=== PATIENT | male | born 1965 | race Caucasian/White ===

== ENCOUNTER 2022-09-06 07:43 | Day surgery (SDC) | payer MEDICAID, SELFPAY ==
[2022-09-06] VITALS (13 sets, daily range): BP systolic 143–191; BP diastolic 97–116; PULSE 61–80; RESP 18–20; O2SAT 96–99; BMI 22.1
--- NOTE | 2022-09-06 07:09 | IR_ITS ---
APPROVED REPORT Patient Location: Outpatient PROCEDURES Left heart catheterization Left ventriculogram Selective coronary angiogram Selective engagement the left internal mammary artery to the LAD Selective engagement of the saphenous vein graft to the distal dominant right coronary Drug-eluting stent deployment to the proximal circumflex artery Drug-eluting stent deployment to the first obtuse marginal artery INDICATION Coronary artery disease, Accelerated angina pectoris, History of coronary bypass surgery Informed consent was obtained prior to the procedure. COMPLICATIONS None Estimated Blood Loss: Less than 10 mls TECHNIQUE One percent lidocaine used to anesthetize the right groin. The right femoral artery was accessed via the Seldinger technique and a 5 [place] sheath was placed in the right femoral artery. A JL 4, JR4 catheter were used to perform left heart catheterization, left ventriculogram selective coronary angiography as well as selective engagement of the 2 vein grafts and the left internal mammary artery. At the end the diagnostic angiogram therapeutic heparin was administered giving a therapeutic ACT and the 5 [place] sheath was exchanged for a 6 [place] sheath. An EBU 4 guide catheter was placed in the left main artery followed by Choice PT extra-support wire being placed down the circumflex artery. A guide liner was advanced for additional support. Predilatation was made using 2 mm balloon after primary stenting could not be performed. A 2.5 x 38 mm [place] frontier stent was deployed at 20 umm reducing the stenosis. A choice floppy wire was then placed into the distal obtuse marginal artery where additional predilatation was made. Eventually a 2.25 x 22 mm [place] frontier stent was deployed at 20 umm reducing the critical stenosis to 0%. The balloon was brought back and deployed at 24 umm to post dilate. A 3 mm x 26 mm [place] frontier stent was placed in the proximal circumflex artery extending into the first obtuse marginal artery at 20 umm. The balloon was advanced and deployed at 15 umm in the proximal to midportion of the 2.5 mm stent. After achieving excellent angiographic results the apparatus was removed the groin is reprepped closure change sheath was removed and hemostasis was achieved using Perclose device patient was transferred to the postop putting in stable condition ANGIOGRAPHIC RESULTS The left main artery Has proximal eccentric 20% stenosis The left anterior descending artery Has proximal 90% stenosis and then subtotally occluded at mid vessel where competitive flow from the left internal mammary artery graft is identified The circumflex artery Is co-dominant vessel and gives rise to a moderate size ramus intermedius which has a proximal 90% stenosis followed by a tubular 50% stenosis. The circumflex artery itself gives rise to a solitary obtuse marginal artery with the obtuse marginal artery having a long concentric 90% stenosis The right coronary artery Is co-dominant yet still large vessel with a long proximal to mid vessel 70% stenosis. Competitive flow is identified distally The [place] ventriculogram reveals Not performed The left ventricular end-diastolic pressure Not measured CODY to LAD is widely patent. A large thoracic branch was identified in the proximal CODY however there appears to be normal opacification throughout the entire CODY graft Saphenous vein graft to right coronary arteries posterior descending artery is widely patent Saphenous vein graft to circumflex artery appears ostially occluded IMPRESSION Adequate two-vessel revascularization as described above with widely patent CODY to LAD and a widely patent saphenous vein graft to posterior descending artery Severe stenosis in a [place] circumflex artery which extends into
[2022-09-06 08:12] LABS: Basophils # 0.1 K/mm3 (0-0.2); Basophils % 0.8 % (0.1-2.0); Eosinophils # 0.2 K/mm3 (0.0-0.4); Eosinophils % 2.9 % (0.1-12.0); Hematocrit 47.6 % (42.0-52.0); Hemoglobin 14.8 g/dL (14.1-18.0); Lymphocytes # 2.9 K/mm3 (0.7-4.5); Lymphocytes % 36.9 % (10-50); Mean Corpuscular Hemoglobin 29.9 pg (27.0-31.2); Mean Corpuscular Volume 96.5 fl (80-94); Mean Platelet Volume 7.6 fl (7.4-10.4); Monocytes # 0.6 K/mm3 (0.1-1.0); Monocytes % 7.9 % (1.7-9.3); Neutrophils # 4.1 K/mm3 (1.8-7.8); Neutrophils % 51.5 % (37.0-80.0); Platelet Count 283 K/mm3 (142-424); Red Blood Count 4.94 M/mm3 (4.60-6.20); Red Cell Distribution Width 13.6 % (11.5-17.5)
[2022-09-06 08:20] LABS: Anion Gap 16.5 mEq/L (5-15); Blood Urea Nitrogen 17 mg/dl (9-20); Carbon Dioxide 22 mmol/L (22.0-30.0); Chloride 105 mmol/L (98-107); Creatinine Clearance Estimated 82 mL/min (50-200); Estimated Glomerular Filt Rate 88 ml/min (>60); GFR (African American) 106 ML/MIN (>60); Glucose 88 mg/dl (74-100); Potassium 4.5 mmoL/L (3.5-5.1); Sodium 139 mmol/L (136-145)
[2022-09-06 10:59] LABS: CATHL Activated Clotting Time 386 SEC (74-125)
--- NOTE | 2022-09-06 14:03 | P.CONPHA_ITS ---
PHA Admission Nurse Coordinator Discharge Med Tagman: Heri Jenkins has received discharge medication counseling on the following medications: ASPIRIN 81MG LIPITOR 40MG PLAVIX 75MG METOPROLOL SUCCINATE 50MG LISINOPRIL 5MG PATIENT ALREADY TAKING ALL NECESSARY MEDICATIONS POST STENT. PATIENT VERBALIZED UNDERSTANDING AND HAD NO QUESTIONS AT THIS TIME. -INGRID FLOR, PHARMD
== END 2022-09-06 14:00 | disposition home or self-care (01) ==
PROVIDERS: Visit Provider Internal Medicine
DX: I25.119 Atherosclerotic heart disease of native coronary artery with unspecified angina pectoris (principal); I10 Essential (primary) hypertension; Z95.1 Presence of aortocoronary bypass graft; F17.210 Nicotine dependence, cigarettes, uncomplicated
CPT/HCPCS: 80048; 85025; 85347; 92928; 92929; 93454; 93455; 99152; 99153; C1725; C1760; C1769; C1876; C1894; C9600; C9601; J1644; Q9967

== ENCOUNTER 2023-05-07 11:36 | Observation (INO) | payer MEDICAID, SELFPAY ==
[2023-05-07] VITALS (21 sets, daily range): BP systolic 105–162; BP diastolic 72–94; PULSE 50–89; RESP 16–18; TEMP 36.4–36.7; O2SAT 96–100; BMI 24.8
--- NOTE | 2023-05-07 07:01 | IR_ITS ---
APPROVED REPORT Patient Location: Outpatient PROCEDURES Left heart catheterization Left ventriculogram Selective coronary angiogram Selective engagement left internal mammary artery to the LAD Selective engagement of the saphenous vein graft to the right coronary Intravascular lithotripsy to the distal left main artery Intravascular lithotripsy to the proximal circumflex artery Drug-eluting stent deployment to the circumflex artery Drug-eluting stent deployment to the left main artery INDICATION Coronary artery disease, History of coronary artery bypass surgery, Calcific left main artery and calcific circumflex artery Informed consent was obtained prior to the procedure. COMPLICATIONS None Estimated Blood Loss: Less than 10 ml TECHNIQUE One percent lidocaine used to anesthetize the right groin. The right femoral artery was accessed via the Seldinger technique and a 5 [place] sheath was placed in the right femoral artery. A JL 4, JR4 catheter were used to perform left heart catheterization, left ventriculogram selective coronary angiography as well as selective engagement of the 1 vein graft and the left internal mammary artery. At the end of the diagnostic angiogram therapeutic heparin was administered giving a therapeutic ACT and the 5 [place] sheath was exchanged for a 6 [place] sheath. A JL 4 guide catheter was placed in the left main artery followed by Choice PT to support wire placed on the circumflex artery. The 4 mm x 12 mm shockwave lithotripsy balloon was deployed at 4 umm for total of 120 pulsations in the circumflex artery and left main artery. Following this a 3.5 x 18 mm [place] frontier stent was placed in the proximal circumflex artery at 18 umm reducing the stenosis to 0%. An additional 4 mm x 26 mm [place] frontier stent was placed in the ostial left main artery extending into the proximal circumflex artery and deployed at 20 umm. Excellent angiographic results were obtained with CAROLE-3 flow being present before and after the procedure. At the end of the procedure the apparatus was removed the groin is reprepped closure change sheath was removed good hemostasis was achieved using Perclose device patient was transferred to the postop putting in stable condition ANGIOGRAPHIC RESULTS The left main artery Has an ostial calcified 70 to 80% stenosis with a distal 50% stenosis The left anterior descending artery Is proximally patent gives off a single septal charging manipulator and then occluded The circumflex artery Is a large dominant vessel giving rise to a large ramus intermedius which has proximal 10 to 20% stenoses. The circumflex artery itself is patent with a proximal 90% stenosis immediately proximal to a patent stent. The right coronary artery Is a codominant vessel and has proximal and mid vessel 70% stenosis with a focal concentric greater than 90% stenosis followed by a long concentric 70% stenosis which extends into the posterior descending artery and posterior lateral branch. Competitive flow is identified in the posterior descending artery CODY is widely patent mid LAD Saphenous vein graft to the posterior descending artery is patent. The distal portion of the saphenous vein graft there is a concentric tubular 60 to 70% stenosis however the stenotic area appears smooth and may be an anatomical twist. The size of the distal saphenous vein graft is equivalent in size to the posterior descending artery IMPRESSION Severe ostial proximal left main disease which extended into a large circumflex artery and ramus intermedius Successful intravascular lithotripsy to the left main artery and circumflex artery Successful drug-eluting stenting to the left main artery as described above Successful drug-eluting stenting to the proximal circumflex artery as described above Patent CODY to LAD Patent saphenous vein graft to posterior descending artery with disease described as above PLAN 1. Patient will be admitted overnight due to the complex nature of the procedure and monitored for arrhythmia. 2. IV fluids to reduce contrast nephropathy 3. Dual antiplatelet therapy 4. Avoidance of tobacco products 5. LDL less than 55 to be achieved with high intensity statin 6. Cardiac rehabilitation 7. Aggressive risk factor modification Electronically signed by : Ab Chapman MD 05/08/2023 15:16:40
--- NOTE | 2023-05-07 07:56 | CA_ITS ---
APPROVED REPORT EXAM: Comprehensive 2D, Doppler, and color-flow Echocardiogram Wall Covering Contractor: Alida Bai RVT Ht: 5 ft 6 in Wt: 154lbs BSA: 1.79 BP: 133/81 mmHg Indications: CP,CAD,CABG,ABN EKG,SMOKER,SOA,HTN,HLD 2D Dimensions LA Volume 27.00 mL LA Volume Index 15.08 mL/m2 (M/F) 16-34 M-Mode Dimensions RVDd 2.01 cm (0.9-2.6) LA Diam 2.77 cm (1.9-4.0) LVDd 4.45 cm (3.5-5.7) LVDs 3.28 cm (3.5-5.7) IVSd 1.41 cm (0.6-1.1) PWd 0.74 cm (0.6-1.1) EF (Teich) 51.70% FS 26.30% EDV (Teich) 90.10 mL TAPSE 0.91 (<1.7) ESV (Teich) 43.50 mL LV Diastology E Decel Time 187 (160-240 msec) E/A Ratio 1.4 Aortic Valve ELISHA Index 2.01 cm2/m2 AoV Peak Rob. 104.0 (50-130 cm/s) AO Peak GR. 4.40 mmHg AO Mean GR. 2.30 (<5 mmHg) AO VTI 18.6 (18-25 cm) ELISHA (VTI) 3.68 (2.5-4.5 cm2) Mitral Valve MV E Max Rob. 71.0 (40-130 cm/s) MV A Velocity 51.0 (40-130 cm/s) E/A Ratio 1.39 MV PHT 55.0 ms Pulmonary Valve PV Peak Velocity 55.0 (50-150 cm/s) Tricuspid Valve TR P. Velocity 190.00 cm/s RAP Estimate 10.00 mmHg RVSP 24.40 mmHg Left Ventricle The left ventricle is normal size. The left ventricular systolic function is normal. The left ventricular ejection fraction is within the normal range. There is increased LV wall thickness. The septum is asynchronous. The left ventricular diastolic function is normal. LVEF is 55%. Right Ventricle The right ventricle is moderately dilated. Right ventricle is mildly hypokinetic. Atria The left atrium size is normal. The right atrium size is normal. There is no Doppler evidence of interatrial shunt. Aortic Valve The aortic valve opens well. There is no aortic valvular stenosis. Trace aortic regurgitation. Mitral Valve The mitral valve is normal in structure. No evidence of mitral valve stenosis. Trace mitral regurgitation. Tricuspid Valve The tricuspid valve leaflets are thin and pliable. Trace tricuspid regurgitation. There is insufficient TR jet to estimate RVSP. Pulmonic Valve The pulmonary valve is normal in structure. Trace pulmonic regurgitation. Great Vessels The aortic root is mildly dilated, measuring 4.2 cm in diameter. The ascending aorta is borderline dilated, measuring 3.7 cm in diameter. IVC is normal in size and collapses >50% with inspiration. Pericardium There is no pericardial effusion. Other Information Study Quality: Fair Conclusion Normal LV systolic function. Moderate RV dilation with mild reduction in RV function. No significant valvular stenosis or regurgitation. Mildly dilated aortic root (4.2 cm) and borderline dilated ascending aorta (3.7 cm). Electronically signed by : Halie Castillo MD 05/09/2023 21:19:13
[2023-05-07 08:53] LABS: Basophils # 0.1 K/mm3 (0-0.2); Basophils % 0.8 % (0.1-2.0); Eosinophils # 0.3 K/mm3 (0.0-0.4); Eosinophils % 3.3 % (0.1-12.0); Hematocrit 45.2 % (42.0-52.0); Hemoglobin 14.3 g/dL (14.1-18.0); Lymphocytes # 2.9 K/mm3 (0.7-4.5); Mean Corpuscular HGB Conc 31.7 g/dL (31.8-35.4); Mean Corpuscular Hemoglobin 30.9 pg (27.0-31.2); Mean Corpuscular Volume 97.4 fl (80-94); Mean Platelet Volume 7.8 fl (7.4-10.4); Monocytes # 0.8 K/mm3 (0.1-1.0); Monocytes % 8.4 % (1.7-9.3); Neutrophils # 4.9 K/mm3 (1.8-7.8); Neutrophils % 55.4 % (37.0-80.0); Platelet Count 294 K/mm3 (142-424); Red Blood Count 4.64 M/mm3 (4.60-6.20); Red Cell Distribution Width 14.6 % (11.5-17.5); White Blood Count 8.9 K/mm3 (4.8-10.8)
[2023-05-07 08:55] LABS: Anion Gap 14.5 mEq/L (5-15); Blood Urea Nitrogen 25 mg/dl (9-20); Calcium 9.5 mg/dl (8.4-10.2); Carbon Dioxide 22 mmol/L (22.0-30.0); Chloride 109 mmol/L (98-107); Creatinine Clearance Estimated 74 mL/min (50-200); Estimated Glomerular Filt Rate 69 ml/min (>60); GFR (African American) 84 ML/MIN (>60); Glucose 95 mg/dl (74-100); Potassium 4.5 mmoL/L (3.5-5.1); Sodium 141 mmol/L (136-145)
[2023-05-07] MEDS: HEPARIN 1,000 UNITS/500ML NS (CATH LAB) 3000 UNIT IV (10:30)
[2023-05-07] MEDS: diphenhydrAMINE 50MG/ML VIAL 50 MG IV (10:30)
[2023-05-07] MEDS: LIDOCAINE 1% 10ML MDV 20 ML IJ (10:34)
[2023-05-07] MEDS: 0.9 % SODIUM CHLORIDE 500 ML 25 ML IV (10:34)
[2023-05-07] MEDS: MIDAZOLAM HCL 1MG/1ML 5ML VIAL 1 MG IV (10:46)
[2023-05-07] MEDS: FENTANYL 100MCG/2ML VIAL 50 MCG IV (10:47)
[2023-05-07] MEDS: PROPOFOL 10MG/ML 20ML VIAL 30 MG IV (11:04)
[2023-05-07] MEDS: HEPARIN 1,000 UNITS/ML 10ML VIAL (CATH LAB) 10000 UNIT IV (11:07)
[2023-05-07] MEDS: PROMETHAZINE HCL 25MG/ML 1ML VIAL 25 MG IV (11:34)
[2023-05-07] MEDS: CLOPIDOGREL 75MG TAB 75 MG PO (11:46)
[2023-05-07] MEDS: ASPIRIN EC 81MG TABLET 81 MG PO (11:46)
--- NOTE | 2023-05-07 12:09 | PC.NURSE ---
arrived by shellier from cath lab radiological technologist
--- NOTE | 2023-05-07 12:39 | HMH.PHAINT1 ---
Pharmacy Intervention Comments: home medication list verified using list from outpatient pharmacy
[2023-05-07] MEDS: ACETAMINOPHEN 325MG TAB 650 MG PO (15:22)
--- NOTE | 2023-05-07 15:38 | EXP.HP ---
History of Present Illness *Admission Date: 05/07/23 *Reason for visit:: Cardiac cath *History of present illness: Patient is a 58-year-old male with past medical history of CAD status post CABG, hypertension hyperlipidemia who presents to the hospital for cardiac cath. Patient had cardiac cath with stenting performed, patient was recommended by cardiology for observation in the hospital. Otherwise patient denies chest pain shortness of breath nausea vomiting diarrhea constipation dysuria fever chills at time of my evaluation [facility] Disclaimer: The information contained in this section may have been updated after the patient was seen, as this information can be updated by other users. Medical History Abnormal electrocardiogram [ECG] [EKG] Atypical angina Atypical chest pain Chest pain Coronary artery disease Hyperlipidemia Hypertension Surgical History H/O: vasectomy Hx of CABG S/P CABG x 3 Social History Smoking Status: Current every day smoker tobacco type: cigarettes packs per day: 1 alcohol intake: current substance use type: former substance user and marijuana current occupational status: unemployed Travel in the last 8 weeks: Inside the [place] Review of Systems Review of Systems Review of systems (narrative): as per [facility] Meds Home Medications and Allergies Home Medications Medication Instructions Recorded Confirmed Type aspirin 81 mg tablet,delayed 81 mg PO DAILY Heart Disease 08/21/22 05/07/23 History release bupropion HCl 100 mg tablet,12 hr 100 mg PO DAILY 03/21/23 05/07/23 History sustained-release buspirone 10 mg tablet 10 mg PO BID 03/21/23 05/07/23 History hydroxyzine HCl 50 mg tablet 50 mg PO HSP PRN Anxiety 03/21/23 05/07/23 History lisinopril 20 mg tablet 20 mg PO BID 03/21/23 05/07/23 History metoprolol succinate 25 mg 25 mg PO DAILY #30 tabs 03/21/23 05/07/23 Rx tablet,extended release 24 hr (Toprol XL) ranolazine 500 mg tablet,extended 500 mg PO BID #60 tabs 03/21/23 05/07/23 Rx release,12 hr sertraline 50 mg tablet 50 mg PO DAILY 03/21/23 05/07/23 History atorvastatin 80 mg tablet 80 mg PO HS 05/07/23 05/07/23 History clopidogrel 75 mg tablet 75 mg PO DAILY 05/07/23 05/07/23 History isosorbide mononitrate 60 mg 60 mg PO DAILY 05/07/23 05/07/23 History tablet,extended release 24 hr New Prescriptions to Start Prescriptions: Allergies Allergy/AdvReac Type Severity Reaction Status Date / Time No Known Allergies Allergy Verified 04/26/23 14:27 Exam Data for Last 24 hours Vital signs and Labs for Last 24 Hours: Temp Pulse Resp BP Pulse Ox O2 Del Method 97.8 F 70 17 118/75 100 Room Air 05/07/23 13:45 05/07/23 14:45 05/07/23 14:45 05/07/23 14:45 05/07/23 14:45 05/07/23 14:50 Laboratory Results - last 24 hr 05/07/23 08:35: WBC 8.9, RBC 4.64, Hgb 14.3, Hct 45.2, MCV 97.4 H, MCH 30.9, MCHC 31.7 L, RDW 14.6, Plt Count 294, MPV 7.8, Neut % (Auto) 55.4, Lymph % (Auto) 32.0, [place] % (Auto) 8.4, Eos % (Auto) 3.3, Baso % (Auto) 0.8, Neut # (Auto) 4.9, Lymph # (Auto) 2.9, [place] # (Auto) 0.8, Eos # (Auto) 0.3, Baso # (Auto) 0.1, Sodium 141, Potassium 4.5, Chloride 109 H, Carbon Dioxide 22, Anion Gap 14.5, BUN 25 H, Creatinine 1.10, Estimated Creat Clear 74, Estimated GFR 69, Est GFR ( Amer) 84, Glucose 95, Calcium 9.5 I & O for Last 24 hours: Intake & Output 05/04/23 05/05/23 05/06/23 05/07/23 23:59 23:59 23:59 23:59 Output Total 0 / 0 Balance 0 / 0 Weight 69.853 kg Constitutional Constitutional: no acute distress *Routine HEENT Exam Head: Present normocephalic Eye: Present EOMI and PERRL ENT: Present mucous membranes moist *Routine Neck Exam Neck: Present supple; Absent lymphadenopathy *Routine Respiratory Exam Respiratory: Present CTA bilaterally *Routine Cardiovascular Exam Cardiovascular: Present RRR *Routine Abdominal Exam Abdominal: Present soft and normoactive bowel sounds; Absent tenderness *Routine Rectal Exam Rectal:: deferred *Routine Genitalia Exam Genitalia:: deferred *Routine Extremities Exam Extremities: Absent cyanosis, clubbing or edema *Routine Skin Exam Skin: Present warm; Absent rash *Routine Neurological Exam Neurological: Present alert and oriented X3 Assessment and Plan *Assessment and plan (1) Dyspnea: Status: Acute Category: Medical Code(s): R06.00 - Dyspnea, unspecified (2) Hyperlipidemia: Status: Acute Qualifiers: Hyperlipidemia type: mixed hyperlipidemia Qualified Code(s): E78.2 - Mixed hyperlipidemia Category: Medical Code(s): E78.5 - Hyperlipidemia, unspecified (3) Hx of CABG: Status: Acute Category: Surgical Code(s): Z95.1 - Presence of aortocoronary bypass graft (4) Coronary artery disease: Status: Acute Qualifiers: Coronary Disease-Associated Artery/Lesion type: bypass graft [place] vs. transplanted heart: [place] heart Associated angina: with other forms of angina Qualified Code(s): I25.708 - Atherosclerosis of coronary artery bypass graft(s), unspecified, with other forms of angina pectoris Category: Medical Code(s): I25.10 - Atherosclerotic heart disease of [place] coronary artery without angina pectoris (5) Chest pain: Status: Acute Qualifiers: Chest pain type: unspecified Qualified Code(s): R07.9 - Chest pain, unspecified Category: Medical Code(s): R07.9 - Chest pain, unspecified Plan Patient is a 58-year-old male with past medical history of CAD status post CABG, hypertension hyperlipidemia who presents to the hospital for cardiac cath. Patient had cardiac cath with stenting performed, patient was recommended by cardiology for observation in the hospital. Otherwise patient denies chest pain shortness of breath nausea vomiting diarrhea constipation dysuria fever chills at time of my evaluation Assessment and plan CAD CABG Hypertension Hyperlipidemia Status postcardiac cath, coronary stenting Patient is a started on aspirin, Plavix resume home statin, ranolazine, DVT PPx - lovenox
[2023-05-07] MEDS: SERTRALINE 50MG TABLET 50 MG PO (16:51)
[2023-05-07] MEDS: METOPROLOL SUCCINATE XL 25MG TABLET 25 MG PO (16:51)
[2023-05-07] MEDS: IOPAMIDOL-370 (76%);100ML BOTTLE 150 ML IV (17:18)
[2023-05-07 17:32] LABS: CATHL Activated Clotting Time > 400 SEC (74-125)
--- NOTE | 2023-05-07 18:41 | PC.NURSE ---
A&OX4. TOLERATING RA WELL. HAS C/O SORENESS TO R GROIN, TX PER MAY, EFFECTIVENESS NOTED. NO OTHER NEEDS OR C/O. SITE TO R GROIN CDI. PT HAS BEEN UP INDEPENDENTLY TO BATHROOM, TOLERATING DIET WELL. NSR ON TELE, VSS.
[2023-05-07] MEDS: LISINOPRIL 20MG TABLET 20 MG PO (21:06)
[2023-05-07] MEDS: RANOLAZINE 500MG ER TABLET 500 MG PO (21:06)
[2023-05-07] MEDS: ATORVASTATIN 40MG TABLET 80 MG PO (21:06)
[2023-05-08] VITALS: BP 106/66; PULSE 59; PULSE 66; RESP 18; TEMP 36.7; O2SAT 96
[2023-05-08 04:00] VITALS: BP 101/67; PULSE 52; PULSE 60; RESP 18; TEMP 37.2; O2SAT 96; BMI 24.3
[2023-05-08 06:25] LABS: Blood Urea Nitrogen 20 mg/dl (9-20); Calcium 8.9 mg/dl (8.4-10.2); Carbon Dioxide 24 mmol/L (22.0-30.0); Chloride 110 mmol/L (98-107); Creatinine Clearance Estimated 81 mL/min (50-200); Estimated Glomerular Filt Rate 77 ml/min (>60); GFR (African American) 94 ML/MIN (>60); Glucose 120 mg/dl (74-100); Sodium 138 mmol/L (136-145)
--- NOTE | 2023-05-08 06:26 | PC.NURSE ---
right groin site without hematoma. scant spot of dried blood. pt reported chest soreness.
[2023-05-08 06:34] LABS: Basophils % 0.6 % (0.1-2.0); Eosinophils # 0.2 K/mm3 (0.0-0.4); Eosinophils % 3.1 % (0.1-12.0); Hematocrit 42.3 % (42.0-52.0); Hemoglobin 13.6 g/dL (14.1-18.0); Lymphocytes # 2.5 K/mm3 (0.7-4.5); Lymphocytes % 31.2 % (10-50); Mean Corpuscular HGB Conc 32.1 g/dL (31.8-35.4); Mean Corpuscular Hemoglobin 31.1 pg (27.0-31.2); Mean Corpuscular Volume 96.9 fl (80-94); Monocytes # 0.7 K/mm3 (0.1-1.0); Monocytes % 8.3 % (1.7-9.3); Neutrophils # 4.5 K/mm3 (1.8-7.8); Neutrophils % 56.9 % (37.0-80.0); Platelet Count 265 K/mm3 (142-424); Red Blood Count 4.36 M/mm3 (4.60-6.20); Red Cell Distribution Width 14.7 % (11.5-17.5); White Blood Count 7.9 K/mm3 (4.8-10.8)
[2023-05-08 08:00] VITALS: BP 122/80; PULSE 60; PULSE 72; RESP 18; TEMP 37; O2SAT 100; O2SAT 99
[2023-05-08 09:25] LABS: Alanine Aminotransferase 19 U/L (12-78); Albumin Level 3.9 g/dl (3.5-5.0); Alkaline Phosphatase 95 U/L (38-126); Aspartate Amino Transferase 27 U/L (17-59); Bilirubin,Direct 0.2 mg/dl (0.0-0.4); Bilirubin,Indirect 0.2 mg/dL (0.0-0.9); Bilirubin,Total 0.4 mg/dl (0.2-1.3); Bilirubin,Unconjugated 0.2 mg/dL (0.0-1.1); Chol/HDL Ratio 2.3 (1-3.5); Cholesterol 122 mg/dl (140-200); HDL Cholesterol 54 mg/dl (40-60); Total Protein,Serum 6.1 g/dl (6.3-8.2); Triglycerides 81 mg/dl (30-150); VLDL Cholesterol 16 mg/dL (0-40)
[2023-05-08 09:36] LABS: Direct LDL Cholesterol 47.43 mg/dL (100-129)
[2023-05-08] MEDS: ASPIRIN EC 81MG TABLET 81 MG PO (09:36)
[2023-05-08] MEDS: BUSPIRONE HCL 10 MG TABLET PO (09:37)
[2023-05-08] MEDS: buPROPion HCL 100 MG TABLET PO (09:37)
[2023-05-08] MEDS: RANOLAZINE 500MG ER TABLET 500 MG PO (09:39)
[2023-05-08] MEDS: ENOXAPARIN 40MG/0.4ML SYRINGE 40 MG SQ (09:39)
[2023-05-08] MEDS: METOPROLOL SUCCINATE XL 25MG TABLET 25 MG PO (09:39)
[2023-05-08] MEDS: LISINOPRIL 20MG TABLET 20 MG PO (09:39)
[2023-05-08] MEDS: CLOPIDOGREL 75MG TAB 75 MG PO (09:39)
[2023-05-08] MEDS: SERTRALINE 50MG TABLET 50 MG PO (09:39)
[2023-05-08] MEDS: ACETAMINOPHEN 325MG TAB 650 MG PO (10:12)
--- NOTE | 2023-05-08 10:15 | P.DS_ITS ---
General Admission date:: 05/07/23 Discharge date: 05/08/23 HPI HPI HPI: Patient is a 58-year-old male with past medical history of CAD status post CABG, hypertension hyperlipidemia who presents to the hospital for cardiac cath. Patient had cardiac cath with stenting performed, patient was recommended by cardiology for observation in the hospital. Otherwise patient denies chest pain shortness of breath nausea vomiting diarrhea constipation dysuria fever chills at time of my evaluation Hospital Course Hospital Course Hospital Course: Patient is a 58-year-old male with past medical history of CAD status post CABG, hypertension hyperlipidemia who presents to the hospital for cardiac cath. Patient had cardiac cath with stenting performed, patient was recommended by cardiology for observation in the hospital. Otherwise patient denies chest pain shortness of breath nausea vomiting diarrhea constipation dysuria fever chills at time of my evaluation. Did well during observation. Stable to discharge home. Follow-up with cardiology as an outpatient. Problems addressed as follows: CAD CABG Hypertension Hyperlipidemia - The patient underwent left cardiac catheterization with lithotripsy and stenting to the left main artery. He tolerated the procedure well. Initiated on dual antiplatelet therapy with aspirin and Plavix. Blood pressure well- controlled. Continue statin for his cholesterol, controlled with an LDL of 47. Right groin site has some minor bruising but no significant bleeding or large hematoma. No pain on palpation. Echo was obtained showing normal EF. Has dilated ascending aorta of approximately 4 cm and will need CTA of the chest with monitoring. Plan for follow-up with cardiology in the next 1 to 2 weeks. Stable to discharge home. -Continue meds per med rec. -Hemoglobin stable at 13.6. Kidney function normal with creatinine of 1.0. Exam Data for Last 24 hours Vital signs and Labs for Last 24 Hours: Temp Pulse Resp BP Pulse Ox O2 Del Method 98.6 F 72 18 122/80 100 Room Air 05/08/23 08:00 05/08/23 08:00 05/08/23 08:00 05/08/23 08:00 05/08/23 08:00 05/08/23 09:00 Laboratory Results - last 24 hr 05/07/23 12:08: Activated Clotting Time > 400 H* 05/08/23 05:52: WBC 7.9, RBC 4.36 L, Hgb 13.6 L, Hct 42.3, MCV 96.9 H, MCH 31.1, MCHC 32.1, RDW 14.7, Plt Count 265, MPV 8.0, Neut % (Auto) 56.9, Lymph % (Auto) 31.2, [place] % (Auto) 8.3, Eos % (Auto) 3.1, Baso % (Auto) 0.6, Neut # (Auto) 4.5, Lymph # (Auto) 2.5, [place] # (Auto) 0.7, Eos # (Auto) 0.2, Baso # (Auto) 0.0, Sodium 138, Potassium 5.0, Chloride 110 H, Carbon Dioxide 24, Anion Gap 9.0, BUN 20, Creatinine 1.00, Estimated Creat Clear 81, Estimated GFR 77, Est GFR ( Amer) 94, Glucose 120 H D, Calcium 8.9, Total Bilirubin 0.4, Direct Bilirubin 0.2, Conjugated Bilirubin 0.0, Indirect Bilirubin 0.2, Unconjugated Bilirubin 0.2, AST 27, ALT 19, Alkaline Phosphatase 95, Total Protein 6.1 L, Albumin 3.9, Triglycerides 81, Cholesterol 122 L, LDL Cholesterol Direct 47.43 L , VLDL Cholesterol 16, HDL Cholesterol 54, Cholesterol/HDL Ratio 2.3 I & O for Last 24 hours: Intake & Output 05/05/23 05/06/23 05/07/23 05/08/23 23:59 23:59 23:59 23:59 Intake Total 360 / 360 525 / 525 Output Total 0 / 0 0 / 0 Balance 360 / 360 525 / 525 Weight 69.853 kg 68.606 kg Results Data Completed and Pending Labs on day of discharge: Labs from last 24 hours 05/08/23 05/07/23 05:52 12:08 WBC 7.9 RBC 4.36 L Hgb 13.6 L Hct 42.3 MCV 96.9 H MCH 31.1 MCHC 32.1 RDW 14.7 Plt Count 265 MPV 8.0 Neut % (Auto) 56.9 Lymph % (Auto) 31.2 [place] % (Auto) 8.3 Eos % (Auto) 3.1 Baso % (Auto) 0.6 Neut # (Auto) 4.5 Lymph # (Auto) 2.5 [place] # (Auto) 0.7 Eos # (Auto) 0.2 Baso # (Auto) 0.0 Activated Clotting Time > 400 H* Sodium 138 Potassium 5.0 Chloride 110 H Carbon Dioxide 24 Anion Gap 9.0 BUN 20 Creatinine 1.00 Estimated Creat Clear 81 Estimated GFR 77 Est GFR ( Amer) 94 Glucose 120 H D Calcium 8.9 Total Bilirubin 0.4 Direct Bilirubin 0.2 Conjugated Bilirubin 0.0 Indirect Bilirubin 0.2 Unconjugated Bilirubin 0.2 AST 27 ALT 19 Alkaline Phosphatase 95 Total Protein 6.1 L Albumin 3.9 Triglycerides 81 Cholesterol 122 L LDL Cholesterol Direct 47.43 L VLDL Cholesterol 16 HDL Cholesterol 54 Cholesterol/HDL Ratio 2.3 DS: Diagnosis Discharge Diagnosis (1) Chest pain: Status: Acute Code(s): R07.9 - Chest pain, unspecified Qualifiers: Chest pain type: unspecified Qualified Code(s): R07.9 - Chest pain, unspecified (2) Coronary artery disease: Status: Acute Code(s): I25.10 - Atherosclerotic heart disease of [place] coronary artery without angina pectoris Qualifiers: Associated angina: with other forms of angina Coronary Disease- Associated Artery/Lesion type: bypass graft [place] vs. transplanted heart: [place] heart Qualified Code(s): I25.708 - Atherosclerosis of coronary artery bypass graft(s), unspecified, with other forms of angina pectoris (3) Dyspnea: Status: Acute Code(s): R06.00 - Dyspnea, unspecified (4) Hyperlipidemia: Status: Acute Code(s): E78.5 - Hyperlipidemia, unspecified Qualifiers: Hyperlipidemia type: mixed hyperlipidemia Qualified Code(s): E78.2 - Mixed hyperlipidemia (5) Hx of CABG: Status: Acute Code(s): Z95.1 - Presence of aortocoronary bypass graft Meds Home Medications and Allergies Home Medications Medication Instructions Recorded Confirmed Type aspirin 81 mg tablet,delayed 81 mg PO DAILY Heart Disease 08/21/22 05/07/23 History release bupropion HCl 100 mg tablet,12 hr 100 mg PO DAILY 03/21/23 05/07/23 History sustained-release buspirone 10 mg tablet 10 mg PO BID 03/21/23 05/07/23 History hydroxyzine HCl 50 mg tablet 50 mg PO HSP PRN Anxiety 03/21/23 05/07/23 History lisinopril 20 mg tablet 20 mg PO BID 03/21/23 05/07/23 History metoprolol succinate 25 mg 25 mg PO DAILY #30 tabs 03/21/23 05/07/23 Rx tablet,extended release 24 hr (Toprol XL) ranolazine 500 mg tablet,extended 500 mg PO BID #60 tabs 03/21/23 05/07/23 Rx release,12 hr sertraline 50 mg tablet 50 mg PO DAILY 03/21/23 05/07/23 History atorvastatin 80 mg tablet 80 mg PO HS 05/07/23 05/07/23 History clopidogrel 75 mg tablet 75 mg PO DAILY 05/07/23 05/07/23 History isosorbide mononitrate 60 mg 60 mg PO DAILY 05/07/23 05/07/23 History tablet,extended release 24 hr New Prescriptions to Start Prescriptions: Allergies Allergy/AdvReac Type Severity Reaction Status Date / Time No Known Allergies Allergy Verified 04/26/23 14:27 Discharge Plan Disposition Patient Disposition: Home, Self-Care Condition: Fair Follow up Plan Follow up with: Ab Chapman MD [Staff Physician] - 05/14/23 2:30 pm (Please get labs done before your appt. ) Prescriptions/Medication Reconciliation: Continued aspirin 81 mg tablet,delayed release (DR/EC) 81 mg PO DAILY Patient Comments: TAKE 1 TABLET BY MOUTH ONCE DAILY buspirone 10 mg tablet 10 mg PO BID sertraline 50 mg tablet 50 mg PO DAILY Patient Comments: TAKE 1 TABLET BY MOUTH ONCE DAILY bupropion HCl 100 mg tablet sustained-release 12 hr 100 mg PO DAILY hydroxyzine HCl 50 mg tablet 50 mg PO HSP PRN (Reason: Anxiety) lisinopril 20 mg tablet 20 mg PO BID Patient Comments: TAKE 1 TABLET BY MOUTH TWICE DAILY metoprolol succinate [Toprol XL] 25 mg tablet extended release 24 hr 25 mg PO DAILY Qty: 30 5RF ranolazine 500 mg tablet extended release 12 hr 500 mg PO BID Qty: 60 5RF isosorbide mononitrate 60 mg tablet extended release 24 hr 60 mg PO DAILY Rx Instructions: Take 1 tablet by mouth once daily atorvastatin 80 mg tablet 80 mg PO HS Patient Comments: TAKE 1 TABLET BY MOUTH ONCE DAILY clopidogrel 75 mg tablet 75 mg PO DAILY Other Ambulatory Orders: Basic Metabolic Panel (Routine) Timeframe: 20230514 Facility: [facility] - Location: Laboratory Ordered By: Ab Chapman Complete Blood Count Auto Diff (Routine) Timeframe: 20230514 Facility: [facility] - Location: Laboratory Ordered By: Ab Chapman Problem Reconciliation Problems Reviewed?: Yes Patient Discharge Instructions ACTIVITY: Continue current activity DIET: continue same diet Patient Instructions: DI for Cardiac Catheterization, DI for Surgical Site Infection, DI for Moderate Sedation, DI for Post-Surgical Bleeding Providers Primary Care Provider: Provider,Referral Admit Provider: Theodore Montes Attending Provider: Theodore Montes
--- NOTE | 2023-05-08 13:29 | EXP.CARD.PN ---
Subjective Subjective Date: 05/08/23 Time: 10:30 Principal diagnosis: CAD s/p stenting Interval history: The patient underwent left cardiac catheterization yesterday with lithotripsy and stenting to the left main artery. He tolerated the procedure well. This morning he denies any chest pain or pressure. He denies any shortness of breath or edema. He denies any fever, chills, nausea, vomiting, diarrhea, PND orthopnea. Exam Data for Last 24 hours Vital signs and Labs for Last 24 Hours: Temp Pulse Resp BP Pulse Ox O2 Del Method 98.6 F 72 18 122/80 99 Room Air 05/08/23 08:00 05/08/23 08:00 05/08/23 08:00 05/08/23 08:00 05/08/23 08:00 05/08/23 10:41 Laboratory Results - last 24 hr 05/07/23 12:08: Activated Clotting Time > 400 H* 05/08/23 05:52: WBC 7.9, RBC 4.36 L, Hgb 13.6 L, Hct 42.3, MCV 96.9 H, MCH 31.1, MCHC 32.1, RDW 14.7, Plt Count 265, MPV 8.0, Neut % (Auto) 56.9, Lymph % (Auto) 31.2, [place] % (Auto) 8.3, Eos % (Auto) 3.1, Baso % (Auto) 0.6, Neut # (Auto) 4.5, Lymph # (Auto) 2.5, [place] # (Auto) 0.7, Eos # (Auto) 0.2, Baso # (Auto) 0.0, Sodium 138, Potassium 5.0, Chloride 110 H, Carbon Dioxide 24, Anion Gap 9.0, BUN 20, Creatinine 1.00, Estimated Creat Clear 81, Estimated GFR 77, Est GFR ( Amer) 94, Glucose 120 H D, Calcium 8.9, Total Bilirubin 0.4, Direct Bilirubin 0.2, Conjugated Bilirubin 0.0, Indirect Bilirubin 0.2, Unconjugated Bilirubin 0.2, AST 27, ALT 19, Alkaline Phosphatase 95, Total Protein 6.1 L, Albumin 3.9, Triglycerides 81, Cholesterol 122 L, LDL Cholesterol Direct 47.43 L, VLDL Cholesterol 16, HDL Cholesterol 54, Cholesterol/HDL Ratio 2.3 I & O for Last 24 hours: Intake & Output 05/05/23 05/06/23 05/07/23 05/08/23 23:59 23:59 23:59 23:59 Intake Total 360 / 360 525 / 525 Output Total 0 / 0 0 / 0 Balance 360 / 360 525 / 525 Weight 154 lb 151 lb 4 oz Constitutional Constitutional: no acute distress and average body habitus *Routine HEENT Exam Head: Present normocephalic and atraumatic ENT: Present mucous membranes moist *Routine Neck Exam Neck: Present supple, full ROM and normal carotid upstroke; Absent JVD, carotid bruit or lymphadenopathy *Routine Respiratory Exam Respiratory: Present CTA bilaterally, normal respiratory effort, able to speak in complete sentences and symmetric chest movement *Routine Cardiovascular Exam Cardiovascular: Present RRR, Normal S1 and Normal S2; Absent murmur or gallop *Routine Abdominal Exam Abdominal: Present soft and normoactive bowel sounds; Absent tenderness, distended or organomegaly *Routine Extremities Exam Extremities: Present full ROM, pulses intact and normal capillary refill; Absent cyanosis, clubbing or edema *Routine Skin Exam Skin: Present intact and warm; Absent erythema Comments: Bruising noted to the groin, no pain with palpation *Routine Neurological Exam Neurological: Present alert, oriented X3 and CN II-XII intact; Absent sensory deficit or motor deficit Routine Psychiatric Exam Psychiatric: Present normal affect Progress Note: A&P Assessment and plan (1) Coronary artery disease: Status: Acute (2) Hyperlipidemia: Status: Acute (3) Hx of CABG: Status: Acute (4) Hypertension: Status: Acute (5) S/P coronary artery stent placement: Status: Acute Assessment and Plan Assessment and Plan for All Diagnoses:: Plan: 1. The patient underwent left cardiac catheterization with lithotripsy and stenting to the left main artery. He tolerated the procedure well. He will be on dual antiplatelet therapy with Plavix and aspirin. 2. His blood pressure is well-controlled. 3. His LDL goal is less than 55. His LDL is 47. He is on a statin. 4. His right groin does have some bruising noted to the site. No pain is noted with palpation. 5. The patient's labs are stable. 6. Echocardiogram shows a normal ejection fraction. He does have a dilated ascending aorta at of approximately 4 cm. The patient will need a CTA of the chest on an outpatient basis which can be set up in cardiology clinic at his next follow-up. 7. The patient can be discharged home today from a cardiac standpoint. He will need to follow-up in 1 to 2 weeks on an outpatient basis in cardiology clinic. Thank you for the opportunity to help her to spend the care of this patient. All recommendations and orders are per Dr. Castillo.
== END 2023-05-08 12:08 | disposition home or self-care (01) ==
LOC: 2ND 11:37
PROVIDERS: Internal Medicine; Nurse Practitioner Family; Admitting Provider Internal Medicine; Visit Provider Internal Medicine
DX: I25.118 Atherosclerotic heart disease of native coronary artery with other forms of angina pectoris (principal); Z95.1 Presence of aortocoronary bypass graft; I25.708 Atherosclerosis of coronary artery bypass graft(s), unspecified, with other forms of angina pectoris; E78.5 Hyperlipidemia, unspecified; I10 Essential (primary) hypertension
CPT/HCPCS: 36415; 80048; 80061; 80076; 85025; 85347; 92928; 92972; 93306; 93459; 99152; 99153; C1725; C1760; C1761; C1769; C1876; C1894; C9600; G0378; J1644; Q9967